=== PATIENT | male | born 1975 | race Caucasian/White ===

== ENCOUNTER 2019-07-22 16:59 | Emergency (ER) | payer SELFPAY ==
[~2019-07-22] VITALS: Ht 162.6 cm; Wt 78.0 kg
[~2019-07-22 16:59] MED LIST: NOCURR
[2019-07-22] MEDS ORDERED: IBUP-2271 PO (17:03)
[2019-07-22] MEDS ORDERED: PERTUSS(ACELL),DIPH,TET VAC/PF 0.5 ML VIAL IM ONE (17:30)
[2019-07-22] MEDS ORDERED: OxyCODONE HCL/ACETAMINOPHEN 5-325 MG TABLET PO ONE (17:30)
[2019-07-22 19:29] VITALS: BP 115/84
== END 2019-07-22 21:00 | disposition left against medical advice (07) ==
LOC: EMS 17:00
DX: S61.215A Laceration without foreign body of left ring finger without damage to nail, initial encounter (principal); W31.2XXA Contact with powered woodworking and forming machines, initial encounter; Y93.89 Activity, other specified; Y92.009 Unspecified place in unspecified non-institutional (private) residence as the place of occurrence of the external cause; Y99.8 Other external cause status
CPT/HCPCS: 29130; 73140; 90471; 90715; 96372; 99283; J0690